=== PATIENT | male | born 1965 | race Native Hawaiian/Other Pacific Islander ===

== ENCOUNTER 2020-09-04 08:46 | Emergency (ER) | payer OTHER ==
[~2020-09-04] VITALS: Ht 180.3 cm; Wt 127.9 kg
[2020-09-04 08:54] VITALS: TEMP 98.5
[2020-09-04 09:51] LABS: POTASSIUM 3.6 mmol/L (3.6-5.2)
[2020-09-04 09:56] LABS: PLATELET COUNT 284 K/uL (142-355)
[2020-09-04 10:28] VITALS: BP 161/70
== END 2020-09-04 10:28 | disposition home or self-care (01) ==
LOC: ED 08:46
PROVIDERS: Emergency Medicine Emergency Medical Services
DX: N13.2 Hydronephrosis with renal and ureteral calculous obstruction (principal)
CPT/HCPCS: 80053; 83690; 85027; 96360; 96361; 96374; 96375; 99284; J1885; J2405